=== PATIENT | male | born 1960 | race Caucasian/White ===

== ENCOUNTER 2018-03-12 12:09 | Emergency (ER) | payer OTHER, SELFPAY ==
[2018-03-12 12:11] VITALS: BP 107/48; PULSE 81; RESP 18; TEMP 36.7; O2SAT 95; BMI 34.9
[2018-03-12] MEDS: Ketorolac 60 MG/2 ML Vial IM (12:45)
[2018-03-12] MEDS: Orphenadrine 60 MG/2 ML Ampul IM (12:46)
--- NOTE | 2018-03-12 12:55 | RAD_ITS ---
STUDY: X-RAY - LUMBAR SPINE REASON FOR EXAM: Male, 57 years old. Back pain TECHNIQUE: 3 view(s) of the lumbar spine were obtained. COMPARISON: None FINDINGS: Normal lumbar lordosis. There is a mild rotatory levoscoliosis.. There is a normal alignment of the vertebrae. There is minimal multilevel endplate spondylosis of the lumbar vertebrae. Normal disc space heights. There is mild chronic anterior wedging of T11-L1. The soft tissue structures are unremarkable. RAD/Lumbar Spine 2 or 3 Views IMPRESSION: Mild scoliosis, minimal endplate spondylosis, chronic anterior wedging of T11-L1. Electronically Signed: Blanca Tatum MD at 13:23 EDT , Service support ,
--- NOTE | 2018-03-12 14:30 | ED.DCSUM_ITS ---
- ER Visit Summary Date of Service: 03/12/18 Chief Complaint: Back pain History of Present Illness: The patient is a 57 M presenting with back pain. He states that his back has been bothering him for the past couple of weeks. Yesterday he played golf and it worsened significantly. He states he swung the club and fell to the ground secondary to pain. He has had no numbness or weakness. No bowel or bladder incontinence. No fever. States the pain is worsened with movement. It is slightly improved today. Denies other complaints. Physical Examination: Vitals are stable. Patient is afebrile. Alert no acute distress. HEENT exam is unremarkable. Neck is supple. Lungs are clear and equal bilaterally. Heart is regular rate and rhythm. Abdomen is soft nontender nondistended. Back: Left paraspinal lumbar muscle tenderness, no midline tenderness, straight leg raise negative bilaterally Extremities are unremarkable. Skin is warm and dry. No focal neurologic deficit. Normal strength and sensation Remainder of exam is unremarkable. Emergency Department Course and Treatment: Lumbar x-ray shows no acute process. Patient is given Toradol, Norflex IM. He is given prescription for Naprosyn and Flexeril. He is advised to follow-up with his primary care physician. Advised return to ED if worsening complaints. Disposition: Discharge home Impression: Lumbar strain This note was generated with [employer] dictation software. It may contain incorrect words, spelling, and punctuation that were not noted in review of the chart prior to signing ED Disposition - Plan for ED Patient: Chief Complaint: Back Referrals: Oleksandr Vizcarra MD [Primary Care Provider] -
--- NOTE | 2018-03-12 14:30 | ED.DEP ---
ED Disposition - Plan for ED Patient: Chief Complaint: Back Instructions: ED Sprain Strain Lumbar Prescriptions: Naproxen [Naprosyn] 500 mg PO BID PRN #20 tablet Cyclobenzaprine [Flexeril] 10 mg PO TID PRN #20 tablet PRN Reason: Muscle Spasm Referrals: Oleksandr Vizcarra MD [Primary Care Provider] -
[2018-03-12 14:50] VITALS: BP 129/88; PULSE 68; RESP 18; O2SAT 94
== END 2018-03-12 14:55 | disposition home or self-care (01) ==
PROVIDERS: Emergency Provider Emergency Medicine; Family Provider Family Medicine; PCP Family Medicine
DX: S39.012A Strain of muscle, fascia and tendon of lower back, initial encounter (principal); X50.9XXA Other and unspecified overexertion or strenuous movements or postures, initial encounter; Y93.53 Activity, golf; Y92.9 Unspecified place or not applicable; Y99.9 Unspecified external cause status; I10 Essential (primary) hypertension
CPT/HCPCS: 72100; 96372; 99282

== ENCOUNTER → 2018-04-19 08:27 | Outpatient (CLI) | payer OTHER, SELFPAY ==
[2018-04-19 11:57] LABS: Absolute Lymphocyte Count 0.67 X10^3/ul (0.83-4.51); Absolute Neutrophil Count 3.9 X10^3/uL (2.0-7.7); Basophil# 0.02 X10^3/uL; Basophil% 0.4 % (0-1); Eosinophil# 0.09 X10^3/uL; Eosinophils% 1.7 % (0-5); Hematocrit 48.3 % (40-54); Hemoglobin 16.7 g/dl (13.0-16.5); Lymphocyte # 0.67 X10^3/ul (4.0); Lymphocyte % 12.5 % (19-41); Mean Corp Hgb Conc 34.6 g/gl (32-36); Mean Corpuscular Hgb 29.7 pg (27.0-32.0); Mean Corpuscular Volume 85.9 fL (80-94); Mean Platelet Vol. 11.2 fl (6.2-12.0); Monocyte# 0.68 X10^3/uL; Monocyte% 12.7 % (0-10); Neutrophil # 3.89 X10^3/uL (2.7-7.7); Neutrophil % 72.5 % (47-70); Platelet Count 267 K/mm3 (150-450); RBC Distribution Width SD 40.6 fl (35.1-43.9); Red Blood Count 5.62 M/mm3 (4.6-6.2); White Blood Count 5.4 K/mm3 (4.4-11.0)
[2018-04-19 11:59] LABS: POSITIVE COUNT NO; POSITIVE DIFFERENTIAL NO; POSITIVE MORPHOLOGY NO
[2018-04-19 12:34] LABS: Anion Gap 9 (5-15); BUN 16 mg/dL (7-18); BUN/Creat Ratio 12.6 RATIO (10-20); Calcium,Total 9.2 mg/dL (8.5-10.1); Chloride 102 mmol/L (98-107); Creatinine, Serum 1.27 mg/dL (0.70-1.30); EST Glomerular Filtration Rate 62 mL/min (>60); Est Glom Filt Rate - Afr Amer 76 mL/min (>60); Glucose 110 mg/dL (74-106); Potassium 3.5 mmol/L (3.5-5.1); Sodium Level 137 mmol/L (136-145); Thyroid Stim Hormone (TSH) 2.15 uIU/mL (0.358-3.74)
== END ==
PROVIDERS: Family Provider Family Medicine; PCP Family Medicine; Visit Provider Family Medicine
DX: I10 Essential (primary) hypertension (principal); F41.9 Anxiety disorder, unspecified; R73.01 Impaired fasting glucose
CPT/HCPCS: 36415; 80048; 83036; 84443; 85025

== ENCOUNTER 2018-08-02 00:54 | Inpatient (IN) | payer OTHER, SELFPAY ==
[2018-08-02] VITALS (16 sets, daily range): BP systolic 113–163; BP diastolic 70–96; PULSE 63–96; RESP 14–22; TEMP 36.8–37.3; O2SAT 94–100; BMI 34.1; BMI 33.8; BMI 34.2
--- NOTE | 2018-08-02 01:15 | EKG12_ITS ---
Test Reason : CP Blood Pressure : / mmHG Vent. Rate : 062 BPM Atrial Rate : 062 BPM P-R Int : 156 ms QRS Dur : 104 ms QT Int : 416 ms P-R-T Axes : 036 012 028 degrees QTc Int : 422 ms Normal sinus rhythm Incomplete right bundle branch block Borderline ECG Confirmed by FRANCY KNOX, SVETA ([id number]), assistant production editor MAURICIO NORIEGA ([id number]) on 08/07/2018 12:58:39 PM Referred By: NAI Confirmed By:SVETA SEN MD
--- NOTE | 2018-08-02 01:34 | ED.RN ---
NO OLD EKG.
[2018-08-02 01:39] LABS: Absolute Lymphocyte Count 0.63 X10^3/ul (0.83-4.51); Absolute Neutrophil Count 10.5 X10^3/uL (2.0-7.7); Basophil# 0.02 X10^3/uL; Basophil% 0.2 % (0-1); Eosinophil# 0.07 X10^3/uL; Eosinophils% 0.6 % (0-5); Hematocrit 45.1 % (40-54); Hemoglobin 15.4 g/dl (13.0-16.5); Lymphocyte # 0.63 X10^3/ul (4.0); Lymphocyte % 5.1 % (19-41); Mean Corp Hgb Conc 34.1 g/gl (32-36); Mean Corpuscular Hgb 30.1 pg (27.0-32.0); Mean Corpuscular Volume 88.3 fL (80-94); Mean Platelet Vol. 11.1 fl (6.2-12.0); Monocyte# 1.04 X10^3/uL; Monocyte% 8.5 % (0-10); Neutrophil % 85.4 % (47-70); Platelet Count 230 K/mm3 (150-450); RBC Distribution Width CV 12.9 % (11.6-14.6); RBC Distribution Width SD 41.3 fl (35.1-43.9); Red Blood Count 5.11 M/mm3 (4.6-6.2); White Blood Count 12.3 K/mm3 (4.4-11.0)
[2018-08-02 01:40] LABS: POSITIVE COUNT NO; POSITIVE DIFFERENTIAL NO; POSITIVE MORPHOLOGY NO
[2018-08-02] MEDS: 0.9% Normal Saline 1,000 ML 150 ML IV (01:43)
[2018-08-02] MEDS: Ondansetron 4 MG/2 ML Vial IV ×3 (01:43→10:59)
[2018-08-02] MEDS: Morphine 4 MG/ML Syringe IV ×2 (01:44→05:12)
[2018-08-02 01:46] LABS: AST(SGOT) 28 U/L (15-37); Alanine Aminotransfer ALT/SGPT 33 U/L (16-61); Alkaline Phosphatase 64 U/L (45-117); Anion Gap 9 (5-15); BUN 24 mg/dL (7-18); BUN/Creat Ratio 16.1 RATIO (10-20); Bilirubin, Direct 0.16 mg/dL (0.00-0.30); Calcium,Total 8.5 mg/dL (8.5-10.1); Chloride 103 mmol/L (98-107); Creatinine, Serum 1.49 mg/dL (0.70-1.30); EST Glomerular Filtration Rate 52 mL/min (>60); Est Glom Filt Rate - Afr Amer 63 mL/min (>60); Estimated Creatinine Clearance 57.84 ml/min; Globulin 3.2 g/dL (2.2-4.2); Glucose 160 mg/dL (74-106); Lipase 195 U/L (73-393); Potassium 3.7 mmol/L (3.5-5.1); Protein, Total 7.2 g/dL (6.4-8.2); Sodium Level 138 mmol/L (136-145)
--- NOTE | 2018-08-02 01:48 | RAD_ITS ---
STUDY: X-RAY CHEST REASON FOR EXAM: Male, 57 years old. Nausea. Epigastric pain radiating to the back. Diaphoresis. TECHNIQUE: Single AP portable view of the chest. COMPARISON: None. FINDINGS: There is mild elevation of the right hemidiaphragm. There is minimal left basilar atelectasis. There are no demonstrated pulmonary infiltrates.. There is no demonstrated pleural abnormality. Normal size heart. Normal mediastinum and edwin. Normal visualized pulmonary arteries. Normal visualized aortic arch and descending thoracic aorta. Normal visualized thoracic spine. Normal visualized ribs, clavicles, and shoulders. There is no demonstrated abnormality of the visualized soft tissue structures of the upper abdomen. RAD/Chest 1 View (Portable) IMPRESSION: No evidence for acute cardiopulmonary pathology. Electronically Signed: Boogie Perez MD at 2:12 EST , Service support ,
--- NOTE | 2018-08-02 01:51 | CT_ITS ---
STUDY: CT ABDOMEN AND PELVIS WITHOUT CONTRAST REASON FOR EXAM: Male, 57 years old. Epigastric pain, radiating into the back. Nausea. Diaphoresis. History of hypertension and umbilical hernia repair. RADIATION DOSAGE (If Supplied By Facility): CTDIvol = ( 18.81 ) mGy, DLP = ( 1057.22 ) mGycm TECHNIQUE: Transaxial images were obtained from the dome of the diaphragm to the symphysis pubis without oral contrast, and without intravenous contrast. Sagittal and coronal images were reconstructed. Individualized dose optimization techniques were used for this CT. COMPARISON: None. FINDINGS: The visualized lung bases are unremarkable. The visualized portions of the heart are within normal limits. There is decreased attenuation of the liver consistent with steatosis. There are noncalcified gallstones. There is no demonstrated bile duct dilatation. There is infiltration of fat around the proximal body and neck of the gallbladder extending into the region of the jaya hepatis. This is probably due to cholecystitis. Fat infiltration is also contiguous with the proximal duodenal sweep, however, the duodenum appears grossly normal and peptic ulcer disease is thought to be a much less likely etiology.. Normal spleen. Normal pancreas. Normal bilateral adrenal glands. Normal right kidney. Normal left kidney. Normal visualized stomach. Normal small intestine. Normal colon. The appendix is visualized on axial images 107-119 and it appears normal.. There is minimal atherosclerotic calcification of the abdominal aorta without demonstrated aneurysm. Normal inferior vena cava. Normal retroperitoneum. Normal urinary bladder. There is a left inguinal hernia which contains fat, but no bowel. There is surgical mesh underlying the umbilicus, consistent with previous umbilical hernia repair. There is no evidence for recurrent hernia in that region. There are surgical clips in the inguinal canals, probably representing previous vasectomy. There is a broad posterior disc protrusion at the L4-5 level, asymmetrically larger on the right.. CT/Abdomen/Pelvis without Cont IMPRESSION: Noncalcified gallstones. Fat infiltration around the proximal gallbladder and jaya hepatis is likely to be due to cholecystitis. Peptic ulcer disease related to the proximal duodenal sweep would be a much less likely etiology. Suggest ultrasound correlation. Fatty liver. Minimal aortic atherosclerosis. No evidence for diverticulitis or appendicitis. No demonstrated urinary calculi or fibrosis. Degenerative disc disease L4-5. Electronically Signed: Boogie Perez MD at 3:12 EST , Service support ,
--- NOTE | 2018-08-02 04:32 | ED.VISSUMM ---
- ER Visit Summary Date of Service: 08/02/18 Chief Complaint: Chest and abdominal pain History of Present Illness: The patient is a 57 M who had onset of epigastric pain around 9 PM this evening while sitting at his computer. Pain wrapped around both sides of his abdomen and to his back. He had some nausea and vomited once. He reports having some chills. He states he had similar episode a few nights ago that lasted a couple hours and then spontaneously resolved. Physical Examination: Vital signs are unremarkable. Patient is sitting upright in bed. He appears uncomfortable but is in no distress. Head and neck examination grossly unremarkable. Heart is regular rate and rhythm. Lung sounds are clear. Abdomen is soft with tenderness in the epigastric region and right upper quadrant. No guarding or rebound. Test Results: EKG is sinus at 62 with an incomplete right bundle branch block. No acute ischemia. Portable chest x-ray shows no acute pathology. CBC was a white count of 12.3 with a left shift. Chemistry studies reveal BUN 24 and creatinine 1.49. Glucose is 160. LFTs and lipase are normal. Troponin is negative. CT flank shows noncalcified gallstones. There is fat infiltration around the proximal gallbladder and the jaya hepatis which is likely due to cholecystitis. Emergency Department Course and Treatment: Patient was treated morphine, Zofran, and IV fluids. On repeat evaluation he is improved. Patient has seen Dr. Mabry in the past and wishes to stay with Dr. Mabry for treatment. I spoke with Dr. Mabry and he will be in to see the patient. Patient is given a dose of Zosyn. Treatment Plan: [] Disposition: Admit Impression: Cholecystitis This note was generated with [employer] dictation software. It may contain incorrect words, spelling, and punctuation that were not noted in review of the chart prior to signing ED Disposition - Plan for ED Patient: Chief Complaint: Chest Pain Referrals: Oleksandr Vizcarra MD [Primary Care Provider] -
[2018-08-02] MEDS: HYDROmorphone 0.5 MG/0.5 ML SYRINGE IV ×3 (07:01→13:06)
--- NOTE | 2018-08-02 07:55 | HP.PCM_ITS ---
Problem List (1) RUQ pain Status: Acute (2) Cholecystitis Status: Acute History of Present Illness Date of Admission: 08/02/18 Chief Complaint: RUQ quadrant pain. Nausea. Vomiting. The patient is a 57 year old M who presents with epigastric pain which radiated to the RUQ and into his back. Patient notes he had this discomfort on Tuesday night as well. He states the pain woke him up from sleep on Tuesday and after a few hours the pain had resolved. Patient noted last night the pain continued. He notes nausea and vomiting and sweating. Patient noted over the last few days he has had diarrhea. Patient denies known history of gallstones. He noted the discomfort started in his epigastric region. He denies past history of cardiac history. He notes history of hypertension which is controlled by medication. He denies past history of myocardial infarction, stroke, and blood clots. He denies following with a chief of party. He notes history of tonsillectomy, umbilical hernia repair with mesh, vasectomy, and ankle surgery. Allergies include sulfa. Patient notes continued pain in the RUQ pain into the back. CT scan demonstrated cholecystitis with gallstones. Liver enzymes are unremarkable. WBC is elevated. EKG demonstrated incomplete right bundle branch block. Past Medical History Allergies Sulfa (Sulfonamide Antibiotics) Allergy (Verified 08/02/18 01:02) Anaphylaxis Home Medications: Ambulatory Orders Medication Instructions Recorded Buspirone HCl 5 mg PO TID 03/12/18 Losartan/Hydrochlorothiazide 1 tab PO DAILY 03/12/18 [Losartan-Hctz 50-12.5 mg Tab] Tadalafil [Cialis] 5 mg PO DAILY 03/12/18 Surgical History: herniorrhaphy - umbilical with mesh, tonsillectomy, - - vasectomy and ankle surgery Lives: Spouse/ Significant Other Smoking Status: Never smoker Alcohol: Rare Drugs: None - *Family History Maternal History Items: No pertinent history Paternal History Items: No pertinent history Review of Systems Constitutional: Reports: Anorexia, Night Sweats. Denies: Weight Change, Fatigue HEENT: Denies: Head Aches, Sinus Congestion, Sinus Drainage Cardiovascular: Reports: Chest Pain Respiratory: Reports: Shortness of Breath Gastrointestinal: Reports: Abdominal Pain, Diarrhea, Nausea, Vomiting. Denies: Constipation, Hematemesis, Hematochezia, Melena Genitourinary: Denies: Dysuria Musculoskeletal: Denies: Joint Pain, Joint Tenderness Skin: Denies: Rash, Wounds Neurological: Denies: Numbness, Tingling, Focal weakness Psychiatric: Denies: Anxiety, Depression, Homicidal Ideations, Suicidal Ideations Hematologic/ Lymphatic: Denies: Easy Bruising, Easy Bleeding VTE Information - Inpt Only VTE Present on Admission: Yes VTE Mechan Device Prophylaxis: SCD's Patient Problems: Active and Suspected Problems RUQ pain (Acute) Cholecystitis (Acute) - Physical Exam General: Alert, Oriented x3, Cooperative HEENT: Atraumatic, PERRLA, EOMI, Normocephalic Neck: Supple, No JVD, Negative Carotid Bruits Lungs: Clear to auscultation, Normal air movement Cardiovascular: Regular rate, No murmurs Abdomen: Soft, Distended, Obese, Tender - RUQ/epigastric region, - - Nicely healed incision under the umbilicus. Extremities: No edema, Capillary Refill Less than 3 Seconds Skin: No rashes, No breakdown Musculoskeletal: No Tenderness to Palpation of Joints or Extremities Neurological: Neuro grossly intact Psych/Mental Status: Normal Affect, Appropriate Vital Signs Temp Pulse Resp BP Pulse Ox 98.6 F 74 18 157/91 H 97 08/02/18 00:57 08/02/18 07:00 08/02/18 07:00 08/02/18 07:00 08/02/18 07:00 Oxygen Delivery Method Room Air Weight: 238 lb 1.588 oz Body Mass Index (BMI) 34.1 Laboratory Tests Past 24 Hrs 08/02/18 08/02/18 01:10 01:10 WBC 12.3 H RBC 5.11 Hgb 15.4 Hct 45.1 MCV 88.3 MCH 30.1 MCHC 34.1 RDW 12.9 RDW Differential 41.3 Plt Count 230 MPV 11.1 Immature Gran % (Auto) 0.200 Neut % (Auto) 85.4 H Lymph % (Auto) 5.1 L Hernando % (Auto) 8.5 Eos % (Auto) 0.6 Baso % (Auto) 0.2 Absolute Neuts (auto) 10.5 H Absolute Lymphs (auto) 0.63 L Total Counted Not Reportable Sodium 138 Potassium 3.7 Chloride 103 Carbon Dioxide 26.0 Anion Gap 9 BUN 24 H Creatinine 1.49 H Estim Creat Clear Calc 57.84 Est GFR (MDRD) Af Amer 63 Est GFR (MDRD) Non-Af 52 L BUN/Creatinine Ratio 16.1 Glucose 160 H Calcium 8.5 Total Bilirubin 0.50 Direct Bilirubin 0.16 AST 28 ALT 33 Alkaline Phosphatase 64 Troponin I < 0.015 Total Protein 7.2 Albumin 4.0 Globulin 3.2 Lipase 195 Assessment/Plan All Active Problems RUQ pain (Acute) Cholecystitis (Acute) I am evaluated this patient in conjunction with Dr. Mabry. He will independently evaluate this patient. Impression: RUQ pain. Cholecystitis. Cholelithiasis. Plan: Patient was discussed with Dr. Mabry. We will plan to admit the patient to Med/Surg floor. Dr. Mabry will plan to perform a laparoscopic cholecystectomy without grams. Procedure details, risks and benefits have been explained. Patient and his have had the opportunity to ask and have questions answered. We will plan to proceed later this afternoon. Code Visit Office Visits / Consults: [id number] IP Consult L3
--- NOTE | 2018-08-02 08:48 | ECHOD_ITS ---
Reason For Study: PRE-OP Procedure This was a 2D Doppler, Color Flow transthoracic echocardiogram. Exam performed portable in patient room. Left Ventricle Normal LV size. Left ventricular systolic function is normal. The estimated ejection fraction is 65 %. Diastolic function is indeterminate. No regional wall motion abnormalities noted. Right Ventricle Normal RV size. Normal systolic function. Atria Normal left atrium. Normal right atrium. No doppler evidence for ASD. Mitral Valve There is no mitral annular calcification. Normal mitral valve. Trivial mitral valve insufficiency. Tricuspid Valve Normal tricuspid valve. Trivial tricuspid valve insufficiency. Right ventricular systolic pressure estimated to be 34 mmHg. Aortic Valve Bicuspid aortic valve. Mild diffuse aortic valve thickening. Trivial aortic valve insufficiency. Pulmonic Valve The pulmonic valve is not well visualized. Trivial pulmonic valve insufficiency. Great Vessels Mildly dilated aortic root. Pericardium/Pleural No pericardial effusion. MMode/2D Measurements & Calculations LVIDd: 5.0 cm IVSd: 0.94 cm Ao root diam: 4.1 cm LVIDs: 3.4 cm LVPWd: 0.94 cm RVDd: 2.9 cm FS: 32.8 % LAV(MOD-sp4): 34.3 ml LA A4 area: 13.7 cm2 LA dimension(2D): 3.8 cm RA A4 area: 14.0 cm2 Time Measurements MV dec time: 0.22 sec Doppler Measurements & Calculations MV E max jose juan: 105.8 cm/sec Lat Peak E' Jose Juan: 8.6 cm/sec Med Peak E' Jose Juan: 10.0 cm/sec MV A max jose juan: 93.7 cm/sec E/E' lat: 12.3 E/E' med: 10.6 MV E/A: 1.1 Ao V2 max: 173.4 cm/sec LV V1 max: 117.9 cm/sec PA V2 max: 134.0 cm/sec Ao max P.0 mmHg LV V1 max P.6 mmHg TR max jose juan: 279.4 cm/sec TR max P.3 mmHg Interpretation Summary Left ventricular systolic function is normal. The estimated ejection fraction is 65 %. Trivial mitral valve insufficiency. Trivial tricuspid valve insufficiency. Bicuspid aortic valve. Mild diffuse aortic valve thickening. Trivial aortic valve insufficiency. Trivial pulmonic valve insufficiency. Mildly dilated aortic root. Right ventricular systolic pressure estimated to be 34 mmHg. Diastolic function is indeterminate. Ordering Physician: Zuleyka Mir PA-C Referring Physician: ERIS JEAN Performed By: Monet Lebron, MAREK, RVT
[2018-08-02] MEDS: Lactated Ringers 1,000 ML 150 ML IV ×2 (09:29→18:19)
[2018-08-02] MEDS: 0.9% NaCl Peripheral Flush Adult/Peds IV ×2 (10:54→13:06)
--- NOTE | 2018-08-02 14:28 | CASEMGMT ---
As per admitting RN, pt has living will and POA forms but is unable to bring the forms in at this time. PASCUAL Horan, ASSISTANT HOUSEKEEPING MANAGER
[2018-08-02] MEDS: Cefazolin 2 GM in 0.9% Normal Saline 100 ML IV (15:26)
--- NOTE | 2018-08-02 15:35 | GALL_PTH ---
PATIENT: OLEKSANDR FAUST LOC: MS3 U#:[id number] AGE/SX: 57/M ROOM: NM318 RE08/02/[address]: Dr. Chester Mabry MD : 1960 BED: 1 DIS: 08/04/2018 SPEC #: [id number] RECD: 08/03/18 11:31 STATUS: VICTOR MANUEL REMary Lou #: [id number] BARTOLOME: 08/02/18 15:[address]: Chester Mabry DEPT: SURGICAL PATHOLOGY RECD BY: Jimmy Shaffer ENTERED: 08/03/18 11:52 SP TYPE: ALYCIA SALINAS DR: Dr. Oleksandr Vizcarra MD Tissues: Gallbladder, NOS Procedures: Surgery Specimen Level III HEADER OPERATION: Laparoscopic cholecystectomy PRE-OP DIAGNOSIS: Acute cholecystitis, right upper quadrant TISSUE SUBMITTED: Gallbladder MICROSCOPIC DIAGNOSIS Gallbladder, cholecystectomy: Chronic cholecystitis with mucosal autolytic changes and cholelithiasis. AM:cheryle 08/04/18 MICROSCOPIC DESCRIPTION Slides are reviewed. GROSS DESCRIPTION Received is one container labeled with the patient's name and designated gallbladder. The specimen consists of a gallbladder measuring 11 x 4.5 x 2.8 cm. The external surface is smooth and glistening. Focally, it is granular, hemorrhagic and contains cautery artifact. The lumen of the gallbladder contains green-yellow mucoid bile and one mulberry-shaped yellow stone measuring 1.2 cm. The mucosa is bile-stained and without any mass lesions. The gallbladder wall averages 0.3 cm in thickness and is free of mass lesions. Hothouse Worker sections of the gallbladder and the cystic duct are submitted in one cassette. / AM:cheryle 08/03/18 TC:3 [facility]: [id number]
--- NOTE | 2018-08-02 15:40 | OP.PCM_ITS ---
Problem List (1) RUQ pain Status: Acute (2) Acute cholecystitis Status: Acute Report of Operation Date of Procedure: 08/02/18 Pre-Operative Diagnosis: Acute cholecystitis. Right upper quadrant abdominal pain Post-Operative Diagnosis: Same Surgery/Procedure Performed:: Laparoscopic cholecystectomy Type of Anesthesia:: General Anesthesiologist: Simon Pollard Specimen's removed: Gallbladder Estimated Blood Loss (mL): < 50 cc Fluids Replaced: 1 liter lr Description of Procedure: Patient was brought into the operating room. Placed in the supine position. Under excellent general endotracheal intubation the abdomen was sterilely prepped and draped in the usual fashion. Local was injected in the right upper quadrant incision was made and a Visiport was used to gain access to the intra- abdominal cavity without injury to underlying structures. The abdomen was insufflated to 15 torr. A subxiphoid #5 trocar was placed inferior to this another #5 trocar was placed in inferior to this a 10/12 trocar was placed all these under direct visualization without injury to underlying structures. Patient was placed in the head up and rotated to the left position he was noted to have a gangrenous gallbladder. I aspirated out the gallbladder. I grasped the fundus with a penetrating grasper and retracted in a cephalad direction. I dissected out significant adhesions down to the cystic duct and dissected this free with a dissector as well as with irrigation. Identified the cystic duct place hemoclips proximally distally on the duct and ligated the duct. Identified the cystic artery placed hemoclips proximally distally and ligated the artery I deliver the gallbladder off of the liver bed with electrocautery it virtually peeled off. I placed a 4 x 4 up here in the gallbladder fossa held pressure for about 10 minutes retrieve the gallbladder through a specimen bag and the umbilical trocar. I went back grasped the falciform ligament and retracted it in a cephalad direction which gave me good access to the liver bed. Use electrocautery on the liver bed to achieve good hemostasis. I retrieved the 4 x 4. I placed Stephen in the gallbladder fossa. A 15 round Michelet-Meyer drain was placed in the gallbladder bed. It was sutured to the skin with a 3-0 nylon. I had excellent hemostasis to remove the trochars under direct visualization had good hemostasis noted. I closed the umbilical defect with 2 interrupted sutures of 0 Vicryl. Skin incisions were closed with subcuticular stitches of 4-0 Monocryl. Steri-Strips are applied sterile dressings were applied and the patient tolerated the procedure well. - Admit VTE Documentation VTE Present on Admission: No VTE Mechan Device Prophylaxis: SCD's VTE Pharm Prophylaxis ordered?: No Reason prophylaxis not ordered:: Treatment Not Indicated
[2018-08-02] MEDS: Bupivacaine 0.5% PF 10 ML VIAL (16:40)
[2018-08-02] MEDS: Piperacil/Tazobactam 3.375 GM/50 ML ML IV (22:31)
[2018-08-02] MEDS: busPIRone 5 MG Tablet PO (22:32)
[2018-08-03] MEDS: Lactated Ringers 1,000 ML 150 ML IV ×4 (00:49→21:18)
[2018-08-03 02:26] VITALS: PULSE 86; O2SAT 93
[2018-08-03 03:39] VITALS: BP 129/94; PULSE 99; RESP 16; TEMP 36.7; O2SAT 94
[2018-08-03] MEDS: Piperacil/Tazobactam 3.375 GM/50 ML ML IV ×3 (05:43→21:27)
[2018-08-03 06:33] LABS: Absolute Lymphocyte Count 0.58 X10^3/ul (0.83-4.51); Absolute Neutrophil Count 12.4 X10^3/uL (2.0-7.7); Basophil# 0.01 X10^3/uL; Basophil% 0.1 % (0-1); Differential Indicated SCAN CRITERIA MET; Hematocrit 44.1 % (40-54); Lymphocyte # 0.58 X10^3/ul (4.0); Lymphocyte % 4.1 % (19-41); Mean Corpuscular Hgb 30.4 pg (27.0-32.0); Mean Corpuscular Volume 89.5 fL (80-94); Mean Platelet Vol. 11.2 fl (6.2-12.0); Monocyte# 1.03 X10^3/uL; Monocyte% 7.3 % (0-10); Neutrophil # 12.43 X10^3/uL (2.7-7.7); Neutrophil % 88.3 % (47-70); POSITIVE COUNT NO; POSITIVE DIFFERENTIAL YES; POSITIVE MORPHOLOGY YES; Platelet Count 263 K/mm3 (150-450); RBC Distribution Width SD 42.2 fl (35.1-43.9); Red Blood Count 4.93 M/mm3 (4.6-6.2); White Blood Count 14.1 K/mm3 (4.4-11.0)
[2018-08-03 06:46] LABS: ALB/GLOB Ratio 0.9 RATIO (0.9-2.4); AST(SGOT) 44 U/L (15-37); Alanine Aminotransfer ALT/SGPT 51 U/L (16-61); Albumin, Serum 3.1 g/dL (3.2-5.0); Alkaline Phosphatase 53 U/L (45-117); Anion Gap 8 (5-15); BUN 13 mg/dL (7-18); BUN/Creat Ratio 12.3 RATIO (10-20); Calcium,Total 8.6 mg/dL (8.5-10.1); Chloride 107 mmol/L (98-107); Creatinine, Serum 1.06 mg/dL (0.70-1.30); EST Glomerular Filtration Rate 77 mL/min (>60); Est Glom Filt Rate - Afr Amer 93 mL/min (>60); Globulin 3.4 g/dL (2.2-4.2); Glucose 137 mg/dL (74-106); Potassium 4.2 mmol/L (3.5-5.1); Protein, Total 6.5 g/dL (6.4-8.2); Sodium Level 142 mmol/L (136-145)
[2018-08-03 09:50] VITALS: BP 152/92; PULSE 81; RESP 18; TEMP 36.9; O2SAT 95
[2018-08-03] MEDS: Acetaminophen 325 MG Tablet 650 MG PO (10:16)
[2018-08-03] MEDS: hydroCHLOROthiazide 12.5mg 12.5 MG PO (10:16)
[2018-08-03] MEDS: Losartan Potassium 50 MG Tablet PO (10:16)
--- NOTE | 2018-08-03 10:38 | NURSING ---
Ambulating in halls at this time.
[2018-08-03] MEDS: oxyCODONE 5 MG Tablet PO (14:16)
[2018-08-03] MEDS: busPIRone 5 MG Tablet PO (14:16)
[2018-08-03 14:25] VITALS: BP 136/78; PULSE 95; RESP 18; TEMP 36.6; O2SAT 95
--- NOTE | 2018-08-03 14:47 | PCM.PN.SRG ---
Patient Problems: Active and Suspected Problems RUQ pain (Acute) Cholecystitis (Acute) Acute cholecystitis (Acute) Subjective: Patient has been burping but he has had no flatus as of yet and no bowel movements as of yet. His abdominal discomfort is improved he is experiencing more postoperative pain. Objective: Diminished soft tender in the incisional sites LEYLA drain is draining appropriately. - Physical Exam Vital Signs Temp Pulse Resp BP Pulse Ox 97.8 F 95 18 136/78 H 95 08/03/18 14:25 08/03/18 14:25 08/03/18 14:25 08/03/18 14:25 08/03/18 14:25 Oxygen Flow Rate (L/min) 2 Oxygen Delivery Method Room Air Weight: 236 lb 1.841 oz Body Mass Index (BMI) 33.8 Intake and Output for Last 24 Hours 08/01/18 08/02/18 08/03/18 23:59 23:59 23:59 Intake Total 2415 / 2415 2331 / 2331 Output Total 713 / 713 1970 / 1970 Balance 1702 / 1702 361 / 361 Laboratory Tests Past 24 Hrs 08/03/18 08/03/18 05:52 05:52 WBC 14.1 H RBC 4.93 Hgb 15.0 Hct 44.1 MCV 89.5 MCH 30.4 MCHC 34.0 RDW 13.0 RDW Differential 42.2 Plt Count 263 MPV 11.2 Immature Gran % (Auto) 0.200 Neut % (Auto) 88.3 H Lymph % (Auto) 4.1 L Brewster % (Auto) 7.3 Eos % (Auto) 0.0 Baso % (Auto) 0.1 Absolute Neuts (auto) 12.4 H Absolute Lymphs (auto) 0.58 L Total Counted Not Reportable Sodium 142 Potassium 4.2 Chloride 107 Carbon Dioxide 27.0 Anion Gap 8 BUN 13 Creatinine 1.06 Estim Creat Clear Calc 81.30 Est GFR (MDRD) Af Amer 93 Est GFR (MDRD) Non-Af 77 BUN/Creatinine Ratio 12.3 Glucose 137 H Calcium 8.6 Total Bilirubin 0.90 AST 44 H ALT 51 Alkaline Phosphatase 53 Total Protein 6.5 Albumin 3.1 L Globulin 3.4 Albumin/Globulin Ratio 0.9 Medical Necessity - Tobacco Use Smoking Status: Never smoker Assessment/Plan All Active Problems RUQ pain (Acute) Cholecystitis (Acute) Acute cholecystitis (Acute) Postoperative day #1 We will continue on IV antibiotics and await for GI function. I would anticipate hopefully by tomorrow we will be able to remove the LEYLA drain.
[2018-08-03 20:06] VITALS: BP 128/74; PULSE 84; RESP 16; TEMP 36.8; O2SAT 95
[2018-08-04 02:10] VITALS: BP 117/65; PULSE 86; RESP 16; TEMP 37; O2SAT 94
[2018-08-04] MEDS: Lactated Ringers 1,000 ML 150 ML IV ×2 (03:49→10:08)
[2018-08-04] MEDS: Piperacil/Tazobactam 3.375 GM/50 ML ML IV (05:09)
[2018-08-04 07:19] VITALS: BP 145/84; PULSE 82; RESP 18; TEMP 36.9; O2SAT 94
[2018-08-04] MEDS: Losartan Potassium 50 MG Tablet PO (07:32)
[2018-08-04] MEDS: hydroCHLOROthiazide 12.5mg 12.5 MG PO (07:32)
--- NOTE | 2018-08-04 12:23 | DCINST_ITS ---
Allergies/Adverse Reactions: Allergies Sulfa (Sulfonamide Antibiotics) Allergy (Verified 08/02/18 01:02) Anaphylaxis Medications to take at Discharge Buspirone HCl 5 mg PO TID 03/12/18 Losartan/Hydrochlorothiazide [Losartan-Hctz 50-12.5 mg Tab] 1 tab PO DAILY 03/12/18 Tadalafil [Cialis] 5 mg PO DAILY 03/12/18 Oxycodone HCl/Acetaminophen [Percocet 5/325] 1 - 2 tab PO Q4H PRN PRN 5 Days #30 tab 08/04/18 The following prescriptions were given: Oxycodone HCl/Acetaminophen [Percocet 5/325] 1 - 2 tab PO Q4H PRN PRN 5 Days #30 tab PRN Reason: Pain Primary Care Physician: Oleksandr Vizcarra MD [Primary Care Provider] - Test Results: Test results from this visit will be discussed in further detail at your follow- up appointment, if applicable.
[2018-08-04 12:51] VITALS: BP 156/83; PULSE 83; RESP 18; TEMP 37; O2SAT 94
--- NOTE | 2018-08-04 13:50 | CASEMGMT ---
JARRETT CM Face to Face with patient for initial transition planning/care coordination assessment. RN CM introduced self and role at [facility]. Patient lying in bed, alert and oriented, . Patient willing to participate in assessment and is able to answer all questions appropriately. Care providers, pharmacy, and demographics verified. Patient wishes to discharge home, denies need for home health at this time. Patient states he has no further needs or concerns at this time. CM to follow for discharge planning needs that may arise. Disposition Plan: Patient to discharge home with family support and follow-up plans in place. Katina BLAKE, RN, CM
--- NOTE | 2018-08-21 12:41 | PCM.DC.SUM ---
Discharge Date and Diagnosis Date of Admission: 08/02/18 Date of Discharge: 08/04/18 - Primary Discharge Diagnosis Acute cholecystitis Hospital Course and Treatment Operations: cholecystecomy - Laparoscopic Summary of Care Provided: The patient is a 58 year old M [] - Physical Exam General: Alert, Oriented x3, Cooperative Lungs: Clear to auscultation, Normal air movement Cardiovascular: Regular rate, No murmurs Abdomen: Soft, Hypoactive Bowel Sounds, Distended - slightly, Tender - generalized, - - Incisions c/d/i. No erythema or infection noted. Vital Signs Temp Pulse Resp BP Pulse Ox 98.6 F 83 18 156/83 H 94 08/04/18 12:51 08/04/18 12:51 08/04/18 12:51 08/04/18 12:51 08/04/18 12:51 Oxygen Flow Rate (L/min) 2 Oxygen Delivery Method Room Air Weight: 236 lb 1.841 oz Body Mass Index (BMI) 33.8 Home Medications: Medications to take at Discharge Buspirone HCl 5 mg PO TID 03/12/18 Losartan/Hydrochlorothiazide [Losartan-Hctz 50-12.5 mg Tab] 1 tab PO DAILY 03/12/18 Tadalafil [Cialis] 5 mg PO DAILY 03/12/18 Primary Care Physician: Oleksandr Vizcarra MD [Primary Care Provider] - Please Follow Up With: Zuleyka Mir PA-C Disposition: Home Minutes spent on discharge:: 20 Patient Condition:: Stable Medical Necessity - Tobacco Use Smoking Status: Never smoker Meaningful Use Info Meaningful Use Diagnoses (Choose all that apply): None applicable Code Visit Inpatient E&M: 13952 Disch Hosp
== END 2018-08-04 14:31 | disposition home or self-care (01) | DRG 419 ==
LOC: ED 01:31 → MS3 07:26 → ED 12:57
PROVIDERS: Physician Assistant; Admitting Provider Surgery; Emergency Provider Emergency Medicine; Family Provider Family Medicine; PCP Family Medicine; Visit Provider Surgery
PROC: 0FT44ZZ Resection of Gallbladder, Percutaneous Endoscopic Approach (ICD-10-PCS; principal; 2018-08-02 15:15)
DX: K80.00 Calculus of gallbladder with acute cholecystitis without obstruction (principal); I10 Essential (primary) hypertension; K82.A1 Gangrene of gallbladder in cholecystitis
CPT/HCPCS: 36415; 71045; 74176; 80048; 80053; 80076; 83690; 84484; 85025; 88304; 93005; 93306; 99282; J7030; J7040; J7120; A4216; J2405

== ENCOUNTER → 2019-12-26 14:01 | Outpatient (CLI) | payer OTHER, SELFPAY ==
[2018-08-02 13:03] VITALS: BMI 33.8
[2019-12-26 15:26] LABS: Absolute Neutrophil Count 4.5 X10^3/uL (2.0-7.7); Basophil# 0.04 X10^3/uL; Basophil% 0.7 % (0-1); Eosinophil# 0.09 X10^3/uL; Eosinophils% 1.5 % (0-5); Hemoglobin 16.7 g/dL (13.0-16.5); Lymphocyte % 13.2 % (19-41); Mean Corp Hgb Conc 32.7 g/dL (32-36); Mean Corpuscular Volume 88.5 fL (80-94); Mean Platelet Vol. 11.1 fl (6.2-12.0); Monocyte# 0.58 X10^3/uL; Monocyte% 9.6 % (0-10); NRBC Flagged by Analyzer 0 % (0-5); Neutrophil # 4.53 X10^3/uL (2.7-7.7); Neutrophil % 74.8 % (47-70); Platelet Count 299 K/mm3 (150-450); RBC Distribution Width CV 12.8 % (11.6-14.6); RBC Distribution Width SD 41.5 fl (35.1-43.9); Red Blood Count 5.76 M/mm3 (4.6-6.2); White Blood Count 6.1 K/mm3 (4.4-11.0)
[2019-12-26 15:40] LABS: Hemoglobin A1c 5.8 % (3.8-5.6)
[2019-12-26 16:04] LABS: ALB/GLOB Ratio 1.2 RATIO (0.9-2.4); AST(SGOT) 25 U/L (15-37); Alanine Aminotransfer ALT/SGPT 44 U/L (16-61); Albumin, Serum 4.2 g/dL (3.2-5.0); Alkaline Phosphatase 72 U/L (45-117); Anion Gap 6 (5-15); BUN 14 mg/dL (7-18); BUN/Creat Ratio 12.5 RATIO (10-20); Calcium,Total 9.2 mg/dL (8.5-10.1); Chloride 102 mmol/L (98-107); Cholesterol 149 mg/dL (200); Creatinine, Serum 1.12 mg/dL (0.70-1.30); EST Glomerular Filtration Rate 72 mL/min (>60); Est Glom Filt Rate - Afr Amer 87 mL/min (>60); Globulin 3.4 g/dL (2.2-4.2); Glucose 95 mg/dL (74-106); High Density Lipoprotein 51 mg/dL; Potassium 3.7 mmol/L (3.5-5.1); Protein, Total 7.6 g/dL (6.4-8.2); Sodium Level 139 mmol/L (136-145); Thyroid Stim Hormone (TSH) 2.74 uIU/mL (0.358-3.74); Triglycerides 72 mg/dL; Very Low Density Lipoprotein 14 mg/dL (5-40)
== END ==
PROVIDERS: PCP Family Medicine; Referring Provider Family Medicine; Visit Provider Family Medicine
DX: I10 Essential (primary) hypertension (principal); R73.01 Impaired fasting glucose; F41.9 Anxiety disorder, unspecified
CPT/HCPCS: 36415; 80053; 80061; 83036; 84443; 85025

== ENCOUNTER → 2022-12-22 | Outpatient (CLI) | payer OTHER, SELFPAY ==
[2022-12-22 12:37] LABS: Absolute Lymphocyte Count 0.69 X10^3/uL (0.83-4.51); Absolute Neutrophil Count 4.7 X10^3/uL (2.0-7.7); Basophil# 0.05 X10^3/uL; Basophil% 0.8 % (0-1); Eosinophil# 0.17 X10^3/uL; Eosinophils% 2.7 % (0-5); Hematocrit 52.3 % (40-54); Hemoglobin 17.3 g/dL (13.0-16.5); Lymphocyte # 0.69 X10^3/ul (0.83-4.51); Lymphocyte % 10.8 % (19-41); Mean Corp Hgb Conc 33.1 g/dL (32-36); Mean Corpuscular Hgb 30.1 pg (27.0-32.0); Mean Corpuscular Volume 91.1 fL (80-94); Mean Platelet Vol. 11.3 fl (6.2-12.0); Monocyte# 0.73 X10^3/uL; Monocyte% 11.5 % (0-10); NRBC Flagged by Analyzer 0 % (0-5); Neutrophil % 73.7 % (47-70); Platelet Count 298 K/mm3 (150-450); RBC Distribution Width CV 12.9 % (11.6-14.6); Red Blood Count 5.74 M/mm3 (4.6-6.2); White Blood Count 6.4 K/mm3 (4.4-11.0)
[2022-12-22 12:51] LABS: ALB/GLOB Ratio 1.2 RATIO (0.9-2.4); AST(SGOT) 31 U/L (15-37); Alanine Aminotransfer ALT/SGPT 51 U/L (16-61); Alkaline Phosphatase 82 U/L (45-117); Anion Gap 7 (5-15); BUN 13 mg/dL (7-18); BUN/Creat Ratio 11.6 RATIO (10-20); Calcium,Total 9.5 mg/dL (8.5-10.1); Chloride 104 mmol/L (98-107); Cholesterol 164 mg/dL (200); Creatinine, Serum 1.12 mg/dL (0.70-1.30); EST Glomerular Filtration Rate 71 mL/min (>60); Est Glom Filt Rate - Afr Amer 86 mL/min (>60); Globulin 3.2 g/dL (2.2-4.2); Glucose 116 mg/dL (74-106); High Density Lipoprotein 48 mg/dL; PSA,Total - Annual Screen 1.96 ng/mL (0.00-4.00); Potassium 3.5 mmol/L (3.5-5.1); Protein, Total 7.2 g/dL (6.4-8.2); Sodium Level 140 mmol/L (136-145); Triglycerides 92 mg/dL; Very Low Density Lipoprotein 18 mg/dL (5-40)
== END | disposition home or self-care (01) ==
LOC: BFHLAB 09:00
PROVIDERS: PCP Nurse Practitioner Family; Referring Provider Nurse Practitioner Family; Visit Provider Nurse Practitioner Family
DX: Z00.00 Encounter for general adult medical examination without abnormal findings (principal); I10 Essential (primary) hypertension; Z12.5 Encounter for screening for malignant neoplasm of prostate
CPT/HCPCS: 36415; 80053; 80061; 84153; 85025; G0103

== ENCOUNTER → 2023-12-27 | Outpatient (CLI) | payer OTHER, SELFPAY ==
[2023-12-27 12:22] LABS: Absolute Neutrophil Count 3.9 X10^3/uL (2.0-7.7); Basophil# 0.03 X10^3/uL; Basophil% 0.5 % (0-1); Eosinophils% 3.6 % (0-5); Hematocrit 49.8 % (40-54); Hemoglobin 16.3 g/dL (13.0-16.5); Lymphocyte % 12.6 % (19-41); Mean Corp Hgb Conc 32.7 g/dL (32-36); Mean Corpuscular Hgb 29.3 pg (27.0-32.0); Mean Corpuscular Volume 89.6 fL (80-94); Mean Platelet Vol. 11.1 fl (6.2-12.0); Monocyte# 0.68 X10^3/uL; Monocyte% 12.3 % (0-10); NRBC Flagged by Analyzer 0 % (0-5); Neutrophil # 3.91 X10^3/uL (2.7-7.7); Neutrophil % 70.5 % (47-70); Platelet Count 266 K/mm3 (150-450); RBC Distribution Width CV 12.9 % (11.6-14.6); Red Blood Count 5.56 M/mm3 (4.6-6.2); White Blood Count 5.6 K/mm3 (4.4-11.0)
[2023-12-27 13:01] LABS: ALB/GLOB Ratio 1.2 RATIO (0.9-2.4); AST(SGOT) 32 U/L (15-37); Alanine Aminotransfer ALT/SGPT 39 U/L (16-61); Albumin, Serum 3.9 g/dL (3.2-5.0); Alkaline Phosphatase 79 U/L (45-117); Anion Gap 8 (5-15); BUN 16 mg/dL (7-18); BUN/Creat Ratio 15.2 RATIO (10-20); Calcium,Total 9.4 mg/dL (8.5-10.1); Chloride 105 mmol/L (98-107); Cholesterol 141 mg/dL (200); Creatinine, Serum 1.05 mg/dL (0.70-1.30); EST Glomerular Filtration Rate 76 mL/min (>60); Est Glom Filt Rate - Afr Amer 92 mL/min (>60); Globulin 3.2 g/dL (2.2-4.2); Glucose 117 mg/dL (74-106); High Density Lipoprotein 42 mg/dL; PSA,Total - Annual Screen 2.21 ng/mL (0.00-4.00); Potassium 3.4 mmol/L (3.5-5.1); Protein, Total 7.1 g/dL (6.4-8.2); Sodium Level 139 mmol/L (136-145); Triglycerides 80 mg/dL; Very Low Density Lipoprotein 16 mg/dL (5-40)
== END | disposition home or self-care (01) ==
LOC: BFHLAB 09:12
PROVIDERS: PCP Nurse Practitioner Family; Referring Provider Nurse Practitioner Family; Visit Provider Nurse Practitioner Family
DX: Z00.01 Encounter for general adult medical examination with abnormal findings (principal); I10 Essential (primary) hypertension; Z12.5 Encounter for screening for malignant neoplasm of prostate
CPT/HCPCS: 36415; 80053; 80061; 84153; 85025; G0103

== ENCOUNTER 2024-02-22 10:06 | Day surgery (SDC) | payer OTHER, SELFPAY ==
[2024-02-22] VITALS (9 sets, daily range): BP systolic 84–131; BP diastolic 68–99; PULSE 64–80; RESP 16–17; TEMP 36.2–36.4; O2SAT 92–95; BMI 35.4
[2024-02-22] MEDS: Lactated Ringers 1,000 ML 15 ML IV (10:26)
--- NOTE | 2024-02-22 11:04 | PCM.PRE.AN2 ---
ASA Classification* ASA Classification ASA Classification: 2 Assessment & Plan Anesthesia* Anesthesia Assessment Anesthesia Assessment: Discussed sedation and/or anesthesia options, risks, benefits, and alternatives with patient/parents/legal guardian/POA. Questions invited. The patient/parents/legal guardian/POA seems to understand and agrees to proceed with anesthesia plan. Reviewed the physical assessment, medical history, allergy history and patient home medications list prior to surgery/procedure/anesthetic and documented any changes. Performed airway and anesthesia risk assessments. Anesthesia Type Anesthesia Type: MAC History Source History Obtained from:: Patient and Chart Anesthesia Focused Assessment* Temperature: 97.3 F Pulse Rate: 80 Blood Pressure: 131/99 Respiratory Rate: 17 Pulse Ox: 95 Oxygen Delivery Method: Room Air Airway Assessment Mouth opens: >3 cm Mallampati Score: III Teeth Condition: Caps/Crowns (Crowns on molars are all tight.) Neck Range of motion (ROM): Full ROM Pertinent Findings EKG Pertinent Findings:: August 02, 2018. Normal sinus rhythm. Incomplete right bundle branch block. Focused Labs Anesthesia Preop lab: CBC WBC 5.6 K/mm3 (4.4-11.0) 12/27/23 09:13 RBC 5.56 M/mm3 (4.6-6.2) 12/27/23 09:13 Hgb 16.3 g/dL (13.0-16.5) 12/27/23 09:13 Hct 49.8 % (40-54) 12/27/23 09:13 Plt Count 266 K/mm3 (150-450) 12/27/23 09:13 CHEMISTRY Potassium 3.4 mmol/L (3.5-5.1) L 12/27/23 09:13 Sodium 139 mmol/L (136-145) 12/27/23 09:13 BUN 16 mg/dL (7-18) 12/27/23 09:13 Creatinine 1.05 mg/dL (0.70-1.30) 12/27/23 09:13 Glucose 117 mg/dL (74-106) H 12/27/23 09:13 TSH 2.74 uIU/mL (0.358-3.74) 12/26/19 14:08 COAG Pre-Assessment Diagnosis/Proposed Procedure Planned Operative Procedure(s): CSCOPE Anesthesia History Anesthesia History - wellness specialist: Anesthesia History - wellness specialist Hx Hospitalization No 02/15/24 12:39 Any Problems With Anesthesia No 02/15/24 12:39 Cholinesterase deficiency No 02/15/24 12:39 You/Your Family Experience No 02/15/24 12:39 fever (hyperthermia) with Relationship Recent Exposure to Contagious No 02/22/24 10:23 Disease Does patient have nerve No 02/15/24 12:39 stimulator Patient instructed to have device shut off --Does patient have Pacemaker No 02/22/24 10:23 or ICD? When Was Last Pacemaker Check QUESTION #4 FULL TEXT: You/Your Family Experience fever (hyperthermia) with Anesthesia Last Oral Intake Last Oral intake: Last Oral Intake NPO since 07:00 02/22/24 10:23 Meds taken in AM with sips of Yes 02/22/24 10:23 water? Meds patient instructed to LOSARTAN-HCTZ 02/22/24 10:23 take am of surgery PONV PONV - wellness specialist: PONV - wellness specialist Female No 02/15/24 12:39 HX of Motion Sickness Yes 02/15/24 12:39 HX of N/V After Surgery No 02/15/24 12:39 Non-Smoker Yes 02/15/24 12:39 Duration of Surgery greater No 02/15/24 12:39 than 60 minutes Number of Risk Factors 2 02/15/24 12:39 PONV Score Moderate Risk 02/15/24 12:39 Height & Weight Height & Weight: Anesthesia: Height & Weight Height 5 ft 10 in 02/22/24 10:23 Weight: 112 kg 02/22/24 10:23 Body Mass Index (BMI) 35.4 02/22/24 10:23 Respiratory Assessment Respiratory Assessment - wellness specialist: Respiratory Tract Infection Hx - wellness specialist Hx Respiratory Tract Infection No 02/15/24 12:39 STOP Sleep Apnea STOP Sleep Apnea - wellness specialist: STOP Sleep Apnea - wellness specialist Hx Hypertension Yes: CONTROLLED WITH MED 02/15/24 12:39 Hx Sleep Apnea No 02/15/24 12:39 CPAP BIPAP Do you snore loudly (louder No 02/15/24 12:39 than talking or can be heard Do you often feel tired/ No 02/15/24 12:39 fatigued/ sleepy during daytime? Has anyone observed you stop No 02/15/24 12:39 breathing during sleep? STOP Results Negative 02/15/24 12:39 QUESTION #5 FULL TEXT : Do you snore loudly (louder than talking or can be heard through closed doors)? 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 Specify any problems Hx of Preganancy in last 3 N/A 02/15/24 12:39 Months Nurse Filling Out Transfusion NBUCHER 02/15/24 12:39 & Questions: Date: 02/15/24 02/15/24 12:39 Time: 12:41 02/15/24 12:39 Patient unable to answer at this time (ie. confused, unrespo /Reproduction History /Reproductive History - wellness specialist: /Reproductive Hx- wellness specialist Hx Now No 02/15/24 12:39 Gestational Age (in weeks): EDC: Hx Hx Para Hx Section SAB No 02/15/24 12:39 Active Medications Active Medications: Current Medications Generic Name Dose Route Start Last Admin Trade Name Freq PRN Reason Stop Dose Admin Lactated Ringer's 1,000 mls @ 15 mls/hr 02/22/24 10:15 02/22/24 10:26 IV 15 mls/hr .Q48H RAQUEL Administration PFSH Medical History Wears glasses Arthritis Non-smoker History of edema History of echocardiogram (~2017) Bicuspid aortic valve Anxiety disorder HTN (hypertension) Acute cholecystitis Cholecystitis RUQ pain Home Medications ?Medication ?Instructions ?Recorded ?Last Taken ?Type losartan 50 mg-hydrochlorothiazide 1 tab PO DAILY bp 03/12/18 02/22/24 History 12.5 mg tablet tadalafil 5 mg tablet 5 mg PO DAILY PRN Erectile 03/12/18 07/31/18 History dysfunction acetaminophen 500 mg tablet 1,000 mg PO ONCE PRN pain 01/23/24 Unknown History (Tylenol Extra Strength) ibuprofen 200 mg tablet 400 mg PO Q8H PRN pain 01/23/24 Unknown History loratadine 10 mg tablet (Claritin) 10 mg PO DAILY 01/23/24 02/21/24 History multivitamin 1 tab PO DAILY 01/23/24 02/21/24 History Allergy/AdvReac Type Severity Reaction Status Date / Time Sulfa (Sulfonamide Allergy Anaphylaxis Verified 02/22/24 10:22 Antibiotics) Family History Unknown Adopted Surgical History History of umbilical hernia repair History of tonsillectomy History of vasectomy History of ankle surgery Hx of colonoscopy S/P laparoscopic cholecystectomy (~08/02/18) Social History adopted: Yes 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
--- NOTE | 2024-02-22 11:45 | PCM.HP.STD ---
HPI - General General Date of Admission: 02/22/24 Date of Service: 02/22/24 Chief Complaint: Screening colonoscopy HPI Narrative ERIS FAUST, is a 63 M who presents today for screening colonoscopy. He does not take any medicines on a daily basis except for high blood pressure medicines. He is not having any chest pain. Or shortness of breath. Overall is in fairly good health. [facility] Medical History Wears glasses Arthritis Non-smoker History of edema History of echocardiogram (~2017) Bicuspid aortic valve Anxiety disorder HTN (hypertension) Acute cholecystitis Cholecystitis RUQ pain Home Medications ?Medication ?Instructions ?Recorded ?Last Taken ?Type losartan 50 mg-hydrochlorothiazide 1 tab PO DAILY bp 03/12/18 02/22/24 History 12.5 mg tablet tadalafil 5 mg tablet 5 mg PO DAILY PRN Erectile 03/12/18 07/31/18 History dysfunction acetaminophen 500 mg tablet 1,000 mg PO ONCE PRN pain 01/23/24 Unknown History (Tylenol Extra Strength) ibuprofen 200 mg tablet 400 mg PO Q8H PRN pain 01/23/24 Unknown History loratadine 10 mg tablet (Claritin) 10 mg PO DAILY 01/23/24 02/21/24 History multivitamin 1 tab PO DAILY 01/23/24 02/21/24 History Allergy/AdvReac Type Severity Reaction Status Date / Time Sulfa (Sulfonamide Allergy Anaphylaxis Verified 02/22/24 10:22 Antibiotics) Family History Unknown Adopted Surgical History History of umbilical hernia repair History of tonsillectomy History of vasectomy History of ankle surgery Hx of colonoscopy S/P laparoscopic cholecystectomy (~08/02/18) Social History adopted: Yes 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 Smoking Status: Never smoker alcohol intake: never substance use type: does not use ROS Review of Systems ROS Unobtainable: other Constitutional Constitutional: Denies fatigue, fever(s), poor appetite, weight gain or weight loss ENT HEENT: Denies mouth lesions Cardiovascular Cardiovascular: Denies abdominal bloating, abdominal edema or abdominal pain Respiratory/Chest Respiratory/Chest: Denies change in mental status, change in phlegm color, chest congestion or chest tightness Gastrointestinal Gastrointestinal: Denies belching, bloating, change in bowel habits, change in stool character, chewing difficulty, coffee ground emesis, constipation, cramping, diarrhea, dyspepsia, dysphagia, early satiety, excessive flatus, fecal incontinence, heartburn, hematemesis, hematochezia, hemorrhoids, loose stools, melena, nausea, odynophagia, rectal bleeding, tenesmus, vomiting or weight changes Genitourinary Genitourinary: Denies abdominal discomfort, burning urination or itching Musculoskeletal Musculoskeletal: Reports as per HPI; Denies muscle weakness or myalgias Integumentary Integumentary: Denies jaundice Neurologic Neurologic: Denies lack of coordination or weakness Psychiatric Psychiatric: Denies confusion, depression, memory loss, mood swings, paranoia or suicidal ideation Endocrine Endocrinology: Denies systems reviewed and no addt'l complaints, except as documented Hematologic/Lymphatic Hematologic/Lymphatic: Denies anemia, easy bleeding, easy bruising or lymphadenopathy Allergic/Immunologic Allergic/Immunologic: Denies systems reviewed and no addt'l complaints, except as documented Vital Signs Vital Signs Vital Signs: 02/22/24 10:23 02/22/24 10:23 02/22/24 11:09 Temperature 97.3 F L 97.3 F L Temperature Source Temporal Pulse Rate 80 80 Respiratory Rate 17 17 Respiratory Pattern Normal Blood Pressure 131/99 H 131/99 H Blood Pressure Mean 109 Blood Pressure Source Monitor Blood Pressure Position Semi-Fowlers Blood Pressure Location Left Arm Pulse Ox 95 95 Oxygen Delivery Method Room Air Room Air Weight Weight: 246 lb 14.684 oz Body Mass Index (BMI) 35.4 Physical Exam Const alert General Appearance: cooperative Orientation / Consciousness: oriented to person HEENT hearing grossly normal bilaterally Head and Scalp: normal to inspection Face and Sinus: face symmetric Nose: external nose normal Mouth: oral and palatal mucosa normal Eyes conjunctivae normal General Eye: normal appearance of both eyes Neck full ROM General: normal visual inspection Lymph Lymphatic: no lymphadenopathy noted Chest inspection of chest normal and palpation of chest normal Chest: symmetrical chest wall rise Resp normal respiratory effort Effort and Inspection: able to speak in complete sentences Cardio regular rate GI non-distended Percussion: normal to percussion Rectal Exam: deferred Neuro Speech: speech normal Gait (Neuro): normal gait Assessment & Plan Assessment/Plan (1) Encounter for screening for malignant neoplasm of colon: PLAN: He was explained alternatives, risk, benefits including outstanding bleeding, infection, sepsis, perforation, need for emergent surgery and . He will have an ASA of 3.
--- NOTE | 2024-02-22 12:10 | OP.COLON_ITS ---
Patient Name: Oleksandr Bazan Procedure Date: 02/22/2024 11:47 AM Date of : 1960 Age: 63 Procedure: Colonoscopy Indications: Screening for colorectal malignant neoplasm Providers: Bebo Holland DO Referring MD: Rikki Long Medicines: Monitored Anesthesia Care Patient Profile: This is a 63 year old male. Refer to note in patient chart for documentation of history and physical. Last Colonoscopy: more than 10 years ago. Complications: No immediate complications. Procedure: Pre-Anesthesia Assessment: - Prior to the procedure, a History and Physical was performed, and patient medications and allergies were reviewed. The patient is competent. The risks and benefits of the procedure and the sedation options and risks were discussed with the patient. All questions were answered and informed consent was obtained. Patient identification and proposed procedure were verified by the physician. Mental Status Examination: normal. Prophylactic Antibiotics: The patient does not require prophylactic antibiotics. Prior Anticoagulants: The patient has taken no anticoagulant or antiplatelet agents. ASA Grade Assessment: III - A patient with severe systemic disease. After reviewing the risks and benefits, the patient was deemed in satisfactory condition to undergo the procedure. The anesthesia plan was to use monitored anesthesia care (MAC). Immediately prior to administration of medications, the patient was re-assessed for adequacy to receive sedatives. The heart rate, respiratory rate, oxygen saturations, blood pressure, adequacy of pulmonary ventilation, and response to care were monitored throughout the procedure. The physical status of the patient was re-assessed after the procedure. After I obtained informed consent, the scope was passed under direct vision. Throughout the procedure, the patient's blood pressure, pulse, and oxygen saturations were monitored continuously. The Colonoscope was introduced through the anus and advanced to the cecum, identified by appendiceal orifice and ileocecal valve. The colonoscopy was performed without difficulty. The patient tolerated the procedure well. The quality of the bowel preparation was adequate. The ileocecal valve, appendiceal orifice, and rectum were photographed. Scope In: 11:55:33 AM Scope Withdrawal Time 0 hours 8 minutes 42 seconds Scope Out: 12:06:05 PM Total Procedure Duration Time 0 hours 10 minutes 32 seconds Findings: The perianal and digital rectal examinations were normal. A few small-mouthed diverticula were found in the recto-sigmoid colon and sigmoid colon. The exam was otherwise without abnormality on direct and retroflexion views. Impression: - Diverticulosis in the recto-sigmoid colon and in the sigmoid colon. - The examination was otherwise normal on direct and retroflexion views. - No specimens collected. Recommendation: - Discharge patient to home. - Resume previous diet. - Continue present medications. - Repeat colonoscopy in 10 years for screening purposes. Procedure Code(s): --- Professional --- G0121, Colorectal cancer screening; colonoscopy on individual not meeting criteria for high risk CPT copyright 2021 [employer]. All rights reserved. The codes documented in this report are preliminary and upon body repairer review may be revised to meet current compliance requirements. Bebo Holland DO 02/22/2024 12:09:40 PM This report has been signed electronically. Number of Addenda: 0 Note Initiated On: 02/22/2024 11:47 AM
--- NOTE | 2024-02-22 12:10 | OP.CCLET_ITS ---
02/22/2024 Rikki Long Re : Colonoscopy procedure for Oleksandr Bazan Dear Jeronimo This procedure was performed on Thursday, February 22, 2024. My impressions and recommendations are as follows: Impressions : - Diverticulosis in the recto-sigmoid colon and in the sigmoid colon. - The examination was otherwise normal on direct and retroflexion views. - No specimens collected. Recommendations : - Discharge patient to home. - Resume previous diet. - Continue present medications. - Repeat colonoscopy in 10 years for screening purposes. My findings are described in the full procedure note, which is enclosed. If I can be of further assistance, please feel free to contact me at . Sincerely, Bebo Holland, 02/22/2024 12:09:40 PM This report has been signed electronically.
--- NOTE | 2024-02-22 12:14 | PCM.POST.ANE ---
Anesthesia: Postop Eval I Current Vital Signs Temperature: 97.6 F Pulse Rate: 65 Blood Pressure: 119/78 Respiratory Rate: 16 Pulse Ox: 94 Oxygen Delivery Method: Room Air Assessment Airway patent: Yes Spontaneous unlabored respirations: Yes Mental status: Awake and Calm nausea: No Vomiting: No Anesthesia Complication: No Fluid Hydration Crystalloid volume administer (ml): 600 Total IV fluid infused: 600 Progress Note Anesthesia document: Postop Eval 1 completed: Yes
--- NOTE | 2024-02-22 21:33 | PCM.POSTANE2 ---
Anesthesia Postop Eval I Sum Postop Eval Completion status Anesthesia document: Postop Eval 1 completed: Yes Anesthesia Postop Eval I Summary Anesthesia Postop Eval I Summary: Anesthesia Postop Eval I: Assessment Summary Airway patent Yes 02/22/24 12:16 [email or web address] Spontaneous unlabored Yes 02/22/24 12:16 [email or web address] respirations Mental status Awake,Calm 02/22/24 12:16 [email or web address] nausea No 02/22/24 12:16 [email or web address] Vomiting No 02/22/24 12:16 [email or web address] Anesthesia Postop Eval I: Fluid Summary Crystalloid volume administer 600 02/22/24 12:16 [email or web address] (ml) Colloids volume administered ( ml) Blood Product volume administered (ml) Total IV fluid infused 600 02/22/24 12:16 [email or web address] Anesthesia Postop Eval I: Summary Notes Anesthesia Complication No 02/22/24 12:16 [email or web address] Anesthesia Complication Comment: Post-operative progress note Anesthesia: Postop Eval II Evaluation Mental status: Awake and Calm Pain Level: 0 nausea: No Vomiting: No Complications Anesthesia Complication: No
== END 2024-02-22 13:03 | disposition home or self-care (01) ==
LOC: EN 10:08 → AC 10:10
PROVIDERS: PCP Nurse Practitioner Family; Referring Provider Nurse Practitioner Family; Visit Provider Internal Medicine Gastroenterology
PROC: 0DJD8ZZ Inspection of Lower Intestinal Tract, Via Natural or Artificial Opening Endoscopic (ICD-10-PCS; CPT 45378; principal; 2024-02-22 11:10)
DX: Z12.11 Encounter for screening for malignant neoplasm of colon (principal); K57.30 Diverticulosis of large intestine without perforation or abscess without bleeding; I10 Essential (primary) hypertension; Z79.899 Other long term (current) drug therapy; Z90.49 Acquired absence of other specified parts of digestive tract; Z98.52 Vasectomy status
CPT/HCPCS: 45378; J7120; J2405

== ENCOUNTER → 2024-05-18 | Outpatient (CLI) | payer OTHER, SELFPAY ==
--- NOTE | 2024-05-18 08:34 | RAD_ITS ---
INDICATION: ARTHRITIS/ PAIN EXAMINATION/TECHNIQUE: X-RAY - XR Hips Bilateral with Pelvis when performed; 5 Views COMPARISON: FINDINGS: PELVIC BONES: No displaced fracture, destructive or sclerotic lesions. Note that overlapping bowel shadows may however obscure fine detail. Sacroiliac joints are unremarkable. No widening of the pubic symphysis. HIPS: The articular structures are unremarkable. No displaced fracture seen in this frontal view. SOFT TISSUES: No soft tissue swelling or gas. RAD/Hips B/L min 2 views w/ Pelvis IMPRESSION: No evidence of displaced pelvic or hip fracture. Electronically Signed: Kunal Polo DO at 19:29 EDT Reading Location ID and State: [facility] / [place] Tel [phone], Service support ,
--- NOTE | 2024-05-18 08:34 | RAD_ITS ---
STUDY: X-RAY - LUMBAR SPINE REASON FOR EXAM: Male, 63 years old. ARTHRITIS/ PAIN TECHNIQUE: 4 view(s) of the lumbar spine were obtained. COMPARISON: None FINDINGS: Normal lumbar lordosis. There is a minimal levoscoliosis. There is a normal alignment of the vertebrae. Mild wedge compression of T12 and L1, likely nonacute. Bridging osteophyte at L3-4. Normal disc space heights. The soft tissue structures are unremarkable. RAD/L/S Spine Min 4 Views IMPRESSION: Mild degenerative changes. Minimal scoliosis. Electronically Signed: Kunal Polo DO at 19:31 EDT Reading Location ID and State: [facility] / [place] Tel [phone], Service support ,
== END | disposition home or self-care (01) ==
LOC: MTRAD 08:31
PROVIDERS: PCP Nurse Practitioner Family; Referring Provider Nurse Practitioner Family; Visit Provider Nurse Practitioner Family
DX: M54.50 Low back pain, unspecified (principal); M25.551 Pain in right hip
CPT/HCPCS: 72110; 73521

== ENCOUNTER → 2025-06-28 | Outpatient (CLI) | payer BC, SELFPAY ==
[2025-06-28 12:14] LABS: Hematocrit 49.6 % (40-54); Hemoglobin 16.6 g/dL (13.0-16.5); Immature Granulocytes Count 0.040 X10^3/uL (0.0-0.0); Mean Corp Hgb Conc 33.5 g/dL (32-36); Mean Corpuscular Volume 91.0 fL (80-94); Mean Platelet Vol. 10.9 fl (6.2-12.0); NRBC Flagged by Analyzer 0 % (0-5); Platelet Count 270 K/mm3 (150-450); RBC Distribution Width CV 13.0 % (11.6-14.6); RBC Distribution Width SD 42.9 fl (35.1-43.9); Red Blood Count 5.45 M/mm3 (4.6-6.2); White Blood Count 6.2 K/mm3 (4.4-11.0)
[2025-06-28 12:48] LABS: AST(SGOT) 25 U/L (<=37); Alanine Aminotransfer ALT/SGPT 27 U/L (<=46); Albumin, Serum 4.3 g/dL (3.4-4.8); Alkaline Phosphatase 65 U/L (40-129); Anion Gap 10 (5-15); BUN 11 mg/dL (4-19); BUN/Creat Ratio 11.2 RATIO (10-20); Calcium,Total 9.8 mg/dL (7.6-11.0); Carbon Dioxide 27.5 mmol/L (21.0-32.0); Chloride 104 mmol/L (98-108); Cholesterol 158 mg/dL (<=200); Globulin 2.4 g/dL (2.2-4.2); Glucose 112 mg/dL (70-99); Low Density Lipoprotein Calc. 98 mg/dL; PSA,Total - Annual Screen 1.99 ng/mL (0.02-4.00); Potassium 3.8 mmol/L (3.3-5.1); Pro- Brain NATRIURETIC PEPTIDE 67 pg/mL (<=900); Triglycerides 92 mg/dL; Very Low Density Lipoprotein 18 mg/dL (5-40); cholesterol:hdl ratio screen 3.67
[2025-06-29 08:09] LABS: CRP, High Sensitivity 1.44 mg/L (0.00-3.00)
== END | disposition home or self-care (01) ==
LOC: BFHLAB 09:34
PROVIDERS: PCP Nurse Practitioner Family; Visit Provider Nurse Practitioner Family
DX: Z00.01 Encounter for general adult medical examination with abnormal findings (principal); I10 Essential (primary) hypertension; Z12.5 Encounter for screening for malignant neoplasm of prostate; R73.01 Impaired fasting glucose; R06.02 Shortness of breath; R07.9 Chest pain, unspecified
CPT/HCPCS: 36415; 80053; 80061; 83036; 83880; 84153; 85025; 86141; G0103

== ENCOUNTER → 2025-07-25 | Outpatient (CLI) | payer BC, SELFPAY ==
--- NOTE | 2025-07-25 12:41 | ECHOD_ITS ---
Reason For Study Reason For Study: Bicuspid Aortic Valve Procedure This was a 2D Doppler, Color Flow transthoracic echocardiogram. Exam performed in department. Left Ventricle Normal LV size. Mild concentric left ventricular hypertrophy. Left ventricular systolic function is normal. The global longitudinal strain = -18.2 % (normal). Stage 1 diastolic dysfunction. The left ventricular ejection fraction is 60 %. No regional wall motion abnormalities noted. Right Ventricle Normal RV size. Normal systolic function. Atria Normal left atrium. Normal right atrium. Mitral Valve Normal mitral valve. Mild (1+) mitral valve insufficiency. Tricuspid Valve Normal tricuspid valve. Trivial tricuspid valve insufficiency. Unable to estimate RV systolic pressure due to insufficient tricuspid regurgitant envelope. Aortic Valve Bicuspid aortic valve with fusion of the right and left cusps. There is no aortic stenosis. Trivial aortic valve insufficiency. Pulmonic Valve Normal pulmonic valve. Great Vessels Mildly dilated aortic root. Pericardium/Pleural No pericardial effusion. MMode/2D Measurements & Calculations LVIDd: 4.7 cm IVSd: 1.2 cm LVOT diam: 2.1 cm LVIDs: 3.0 cm LVPWd: 1.2 cm LVOT area: 3.4 cm2 RVDd: 2.9 cm FS: 34.9 % Ao root diam: 4.3 cm LAV(MOD-bp): 28.1 ml LVAd ap4: 25.7 cm2 LAV(MOD-bp) Indexed: 12.4 ml/m2 LVLd ap4: 7.7 cm LAV(MOD-sp2): 30.2 ml EDV(MOD-sp4): 70.8 ml LAV(MOD-sp4): 24.7 ml EDV(sp4-el): 72.8 ml LVAs ap4: 15.2 cm2 LVLs ap4: 6.5 cm ESV(MOD-sp4): 30.5 ml ESV(sp4-el): 30.0 ml EF(MOD-sp4): 56.8 % EF(sp4-el): 58.8 % LVAd ap2: 30.0 cm2 SV(MOD-sp4): 40.2 ml LVLd ap2: 7.5 cm EDV(MOD-bp): 86.4 ml SI(MOD-sp4): 17.7 ml/m2 EDV(MOD-sp2): 101.2 ml ESV(MOD-bp): 34.9 ml EDV(sp2-el): 101.7 ml EF(MOD-bp): 59.6 % LVAs ap2: 16.9 cm2 LVLs ap2: 6.3 cm ESV(MOD-sp2): 38.6 ml ESV(sp2-el): 38.5 ml EF(MOD-sp2): 61.9 % SV(MOD-sp2): 62.7 ml SV(sp4-el): 42.8 ml LA A4 area: 11.5 cm2 SI(MOD-sp2): 27.6 ml/m2 LA dimension(2D): 3.2 cm RA A4 area: 10.9 cm2 TAPSE: 2.1 cm Time Measurements MV dec time: 0.20 sec Doppler Measurements & Calculations MV E max jose juan: 70.3 cm/sec Lat Peak E' Jose Juan: 7.0 cm/sec Med Peak E' Jose Juan: 6.1 cm/sec MV A max jose juan: 101.6 cm/sec E/E' lat: 10.1 E/E' med: 11.5 MV E/A: 0.69 Ao V2 max: 155.3 cm/sec LV V1 max: 119.4 cm/sec MV dec slope: 350.6 cm/sec2 Ao max P.6 mmHg LV V1 max P.7 mmHg Ao V2 mean: 107.5 cm/sec LV V1 mean P.1 mmHg Ao mean P.3 mmHg LV V1 mean: 81.7 cm/sec Ao V2 VTI: 34.7 cm LV V1 VTI: 25.7 cm AV (velocity ratio): 0.74 MAI(I,D): 2.5 cm2 MAI(V,D): 2.6 cm2 SV(LVOT): 87.7 ml PA V2 max: 138.3 cm/sec ECHO/Echo Complete Interpretation Summary The left ventricular ejection fraction is 60 %. Stage 1 diastolic dysfunction. Mild (1+) mitral valve insufficiency. Bicuspid aortic valve with fusion of the right and left cusps. Mildly dilated aortic root. Ordering Physician: Alba Decker Referring Physician: Alba Decker Performed By: Jaquelin Sanon RDCS
== END | disposition home or self-care (01) ==
LOC: CVS 12:40
PROVIDERS: PCP Nurse Practitioner Family; Referring Provider Nurse Practitioner Family; Visit Provider Nurse Practitioner Family
DX: Q23.1 Congenital insufficiency of aortic valve (principal)
CPT/HCPCS: 93306